=== PATIENT | female | born 1975 | race Two or more races ===

== ENCOUNTER 2021-01-20 05:39 | Inpatient (IN) | payer MEDICAID ==
[~2021-01-20] VITALS: Ht 165.1 cm; Wt 96.8 kg
[2021-01-20 06:28] LABS: Basophils # (auto) 0 10 ^3/uL (0-0.2); Basophils % (auto) 0.2 % (0.0-2.0); Eosinophils # (auto) 0 10 ^3/uL (0-0.8); Hematocrit 40.3 % (36.0-46.0); Hemoglobin 13.5 g/dL (12.2-16.2); Lymphocytes # (auto) 2.6 10 ^3/uL (0.4-5.4); Lymphocytes % (auto) 31.7 % (10.0-50.0); Mean Corpuscular Hemoglobin 27.4 pg (28.0-32.0); Mean Corpuscular Hgb Conc. 33.6 g/dL (32.0-36.0); Mean Corpuscular Volume 81.5 fL (80.0-100.0); Monocytes # (auto) 0.6 10 ^3/uL (0-1.3); Monocytes % (auto) 6.7 % (0.0-12.0); Neutrophils # (auto) 5.1 10 ^3/uL (1.6-8.6); Neutrophils % (auto) 61.4 % (37.0-80.0); Nucleated Red Blood Cells % 0.1 %; Platelet Count (auto) 276 10^3/uL (140-450); Red Blood Cells 4.94 10^6/uL (4.0-5.20); Red Cell Distribution Width 14.8 % (11.8-14.3); White Blood Cell 8.3 10^3/uL (4.4-10.8)
[2021-01-20] MEDS ORDERED: ONDANSETRON HCL 4 MG/2 ML VIAL IV ONE ×2 (06:45→08:30)
[2021-01-20] MEDS ORDERED: KETOROLAC TROMETH 30 MG/ML 1ML VIAL IV ONE (06:45)
[2021-01-20 06:50] LABS: Albumin 3.4 g/dL (3.4-5.0); Calcium 8.4 mg/dL (8.5-10.1); Potassium 3.6 mmol/L (3.5-5.1)
[2021-01-20 06:54] LABS: BUN/Creatinine Ratio 9.6; Bilirubin, Total 0.3 mg/dL (0.2-1.0); Total Protein 7.8 g/dL (6.4-8.2)
[2021-01-20] MEDS ORDERED: TAMSULOSIN HYDROCHLORIDE 0.4 MG CAP PO ONE (07:00)
[2021-01-20] MEDS ORDERED: SODIUM CHLORIDE 0.9% 1,000 ML IV ONE ×3 (07:00→10:00)
[2021-01-20] MEDS ORDERED: MORPHINE SULFATE 4 MG/ML SYR/VIAL IV ONE (08:30)
[2021-01-20 08:34] LABS: Urine Bacteria FEW /hpf (None Seen); Urine Blood 1+ /uL (Negative); Urine Specific Gravity 1.003 (1.001-1.035); Urine WBC 3 /hpf (0 - 5)
[2021-01-20] MEDS ORDERED: HYDROcodone-ACET 5/325MG TAB PO PRN (09:45)
[2021-01-20] MEDS ORDERED: ACETAMINOPHEN 500 MG TAB PO PRN (09:45)
[2021-01-20] MEDS ORDERED: SODIUM CHLORIDE 0.9% 1,000 ML IV SCH (09:45)
[2021-01-20] MEDS ORDERED: MORPHINE SULF INJ 2 MG/ML SYRINGE 1ML IV PRN (09:45)
[2021-01-20] MEDS ORDERED: ONDANSETRON HCL 4 MG/2 ML VIAL IV PRN (09:45)
[2021-01-20] MEDS ORDERED: cefTRIAXone 1GM/50ML D5W 50 ML IV ONE (10:00)
[2021-01-20] MEDS: DOCUSATE SOD 100 MG CAP PO SCH ×2 (10:00→21:40)
[2021-01-20] MEDS ORDERED: MANNITOL FTV 25% 12.5 GM/50 ML 50 ML IV ONE (10:00)
[2021-01-20] MEDS ORDERED: METOCLOPRAMIDE HCL 5MG/ml INJ 2ml VIAL IV ONE (10:00)
[2021-01-20] MEDS: FAMOTIDINE 20 MG TAB PO SCH (10:13)
[2021-01-20] MEDS: SODIUM CHLORIDE 0.9% 1,000 ML IV SCH ×2 (14:48→21:40)
[2021-01-20] MEDS: TAMSULOSIN HYDROCHLORIDE 0.4 MG CAP PO SCH (18:37)
[2021-01-20 20:40] VITALS: BP 131/77
[2021-01-20 22:00] VITALS: BP 131/77
[2021-01-21 05:00] VITALS: BP 138/77
[2021-01-21] MEDS: SODIUM CHLORIDE 0.9% 1,000 ML IV SCH (05:49)
[2021-01-21 06:11] LABS: Basophils # (auto) 0 10 ^3/uL (0-0.2); Basophils % (auto) 0.2 % (0.0-2.0); Eosinophils # (auto) 0 10 ^3/uL (0-0.8); Hematocrit 33.6 % (36.0-46.0); Hemoglobin 11.3 g/dL (12.2-16.2); Lymphocytes # (auto) 2.1 10 ^3/uL (0.4-5.4); Lymphocytes % (auto) 26.9 % (10.0-50.0); Mean Corpuscular Hemoglobin 27.5 pg (28.0-32.0); Mean Corpuscular Hgb Conc. 33.5 g/dL (32.0-36.0); Monocytes # (auto) 0.6 10 ^3/uL (0-1.3); Monocytes % (auto) 7.3 % (0.0-12.0); Neutrophils # (auto) 5.1 10 ^3/uL (1.6-8.6); Neutrophils % (auto) 65.6 % (37.0-80.0); Nucleated Red Blood Cells % 0.1 %; Platelet Count (auto) 218 10^3/uL (140-450); Red Cell Distribution Width 14.7 % (11.8-14.3); White Blood Cell 7.8 10^3/uL (4.4-10.8)
[2021-01-21 06:19] LABS: Potassium 3.6 mmol/L (3.5-5.1)
[2021-01-21 06:30] LABS: BUN/Creatinine Ratio 8.5; Calcium 7.6 mg/dL (8.5-10.1)
[2021-01-21 08:48] VITALS: BP 147/94
[2021-01-21] MEDS ORDERED: cefTRIAXone 1GM/50ML D5W 50 ML IV SCH (09:00)
[2021-01-21] MEDS: DOCUSATE SOD 100 MG CAP PO SCH (10:00)
[2021-01-21] MEDS: FAMOTIDINE 20 MG TAB PO SCH (10:39)
[2021-01-21] MEDS: TAMSULOSIN HYDROCHLORIDE 0.4 MG CAP PO SCH (10:39)
[2021-01-21 13:00] VITALS: BP 147/92
[2021-01-21 16:59] VITALS: BP 153/107
== END 2021-01-21 18:30 | disposition home or self-care (01) | DRG 463 ==
LOC: ER 05:39 → OVERFLOW 05:40 → CENTRAL 20:53
PROVIDERS: ADMIT Nurse Practitioner Acute Care; ATTEND Internal Medicine
DX: N13.6 Pyonephrosis (principal); E66.9 Obesity, unspecified; S93.402A Sprain of unspecified ligament of left ankle, initial encounter; F17.210 Nicotine dependence, cigarettes, uncomplicated; K44.9 Diaphragmatic hernia without obstruction or gangrene; X58.XXXA Exposure to other specified factors, initial encounter; Z20.822 Contact with and (suspected) exposure to COVID-19; Y93.89 Activity, other specified; Z87.442 Personal history of urinary calculi; Z90.49 Acquired absence of other specified parts of digestive tract; Y92.89 Other specified places as the place of occurrence of the external cause; Y99.8 Other external cause status; Z68.35 Body mass index [BMI] 35.0-35.9, adult; R16.0 Hepatomegaly, not elsewhere classified
CPT/HCPCS: 36415; 74176; 80048; 80053; 81001; 81025; 85025; 87086; 87426; 96361; 96365; 96367; 96375; G0378; J0696; J1885; J2405

== ENCOUNTER 2021-12-23 05:40 | Emergency (ER) | payer MEDICAID ==
[~2021-12-23] VITALS: Ht 165.1 cm; Wt 104.3 kg
[2021-12-23 05:42] VITALS: BP 166/101
== END 2021-12-23 06:55 | disposition left against medical advice (07) ==
LOC: ER 05:40
DX: L02.01 Cutaneous abscess of face (principal); F17.210 Nicotine dependence, cigarettes, uncomplicated; Z90.49 Acquired absence of other specified parts of digestive tract

== ENCOUNTER 2022-05-14 20:21 | Emergency (ER) | payer MEDICAID ==
[~2022-05-14] VITALS: Ht 165.1 cm; Wt 89.8 kg
[2022-05-14 20:21] VITALS: BP 153/89
[2022-05-14 23:25] LABS: Eosinophils # (auto) 0 10 ^3/uL (0-0.8); Lymphocytes # (auto) 3.9 10 ^3/uL (0.4-5.4); Monocytes # (auto) 0.9 10 ^3/uL (0-1.3); Red Cell Distribution Width 15.5 % (11.8-14.3)
[2022-05-14 23:26] LABS: Basophils # (auto) 0 10 ^3/uL (0-0.2); Basophils % (auto) 0.2 % (0.0-2.0); Hematocrit 39.8 % (36.0-46.0); Hemoglobin 12.9 g/dL (12.2-16.2); Lymphocytes % (auto) 31.8 % (10.0-50.0); Mean Corpuscular Hemoglobin 27.1 pg (28.0-32.0); Mean Corpuscular Hgb Conc. 32.3 g/dL (32.0-36.0); Mean Corpuscular Volume 83.8 fL (80.0-100.0); Monocytes % (auto) 7.1 % (0.0-12.0); Neutrophils # (auto) 7.4 10 ^3/uL (1.6-8.6); Neutrophils % (auto) 60.9 % (37.0-80.0); Red Blood Cells 4.75 10^6/uL (4.0-5.20); White Blood Cell 12.2 10^3/uL (4.4-10.8)
[2022-05-14 23:42] LABS: Albumin 3.7 g/dL (3.4-5.0); BUN/Creatinine Ratio 16.5; Calcium 9.1 mg/dL (8.5-10.1); Potassium 3.9 mmol/L (3.5-5.1)
[2022-05-14 23:44] LABS: Bilirubin, Total 0.2 mg/dL (0.2-1.0); Total Protein 7.9 g/dL (6.4-8.2)
[2022-05-15] MEDS ORDERED: BACL20TA PO (00:01)
[2022-05-15] MEDS ORDERED: HYDR-3682 PO (00:01)
== END 2022-05-15 00:20 | disposition home or self-care (01) ==
LOC: ER 20:32
DX: R25.3 Fasciculation (principal); F41.9 Anxiety disorder, unspecified; F43.9 Reaction to severe stress, unspecified; F17.210 Nicotine dependence, cigarettes, uncomplicated; Z90.49 Acquired absence of other specified parts of digestive tract
CPT/HCPCS: 36415; 70450; 80053; 84484; 85025

== ENCOUNTER 2022-12-28 17:10 | Emergency (ER) | payer MEDICAID ==
[~2022-12-28] VITALS: Ht 165.1 cm; Wt 98.1 kg
[~2022-12-28 17:10] MED LIST: BACL20TA PO; HYDR-3682 PO
[2022-12-28 17:26] VITALS: BP 169/90
[2022-12-28] MEDS ORDERED: methylPREDNISolone SOD SUCC 125 MG/2 ML VL IV ONE (17:45)
[2022-12-28] MEDS ORDERED: SODIUM CHLORIDE 0.9% 1,000 ML IV ONE (17:45)
[2022-12-28] MEDS ORDERED: FAMOTIDINE (10MG/ML) 2ML VL IV ONE (17:45)
[2022-12-28 18:31] LABS: Basophils # (auto) 0 10 ^3/uL (0-0.2); Eosinophils # (auto) 0 10 ^3/uL (0-0.8); Hemoglobin 12.7 g/dL (12.2-16.2); Lymphocytes # (auto) 3.5 10 ^3/uL (0.4-5.4); Lymphocytes % (auto) 30.9 % (10.0-50.0); Mean Corpuscular Hemoglobin 27.8 pg (28.0-32.0); Mean Corpuscular Hgb Conc. 33.3 g/dL (32.0-36.0); Mean Corpuscular Volume 83.3 fL (80.0-100.0); Monocytes # (auto) 0.7 10 ^3/uL (0-1.3); Neutrophils # (auto) 7.2 10 ^3/uL (1.6-8.6); Neutrophils % (auto) 63.1 % (37.0-80.0); Nucleated Red Blood Cells % 0.1 %; Red Blood Cells 4.56 10^6/uL (4.0-5.20); Red Cell Distribution Width 14.7 % (11.8-14.3); White Blood Cell 11.4 10^3/uL (4.4-10.8)
[2022-12-28 18:44] LABS: Calcium 7.6 mg/dL (8.5-10.1); Potassium 3.5 mmol/L (3.5-5.1)
[2022-12-28 19:03] LABS: BUN/Creatinine Ratio 12.8
[2022-12-28 19:04] LABS: Bilirubin, Total 0.3 mg/dL (0.2-1.0); Total Protein 6.6 g/dL (6.4-8.2)
[2022-12-28] MEDS ORDERED: METH4PAK PO (19:22)
== END 2022-12-28 19:48 | disposition home or self-care (01) ==
LOC: ER 17:10
DX: T78.40XA Allergy, unspecified, initial encounter (principal); Z90.49 Acquired absence of other specified parts of digestive tract; Z79.899 Other long term (current) drug therapy; Y92.89 Other specified places as the place of occurrence of the external cause
CPT/HCPCS: 36415; 80053; 85025; 96374; 96375; 99284; J2930; J3490; J7030

== ENCOUNTER 2023-07-25 07:35 | Emergency (ER) | payer MEDICAID ==
[~2023-07-25] VITALS: Ht 167.6 cm; Wt 88.3 kg
[~2023-07-25 07:35] MED LIST changes: +CALA1SUS2 EX; +EPIN0.3I24 IJ; +METH4PAK PO; +PRED20TA2 PO
[2023-07-25 08:05] VITALS: BP 139/88; PULSE 100; RESP 19; TEMP 97.9; O2SAT 97
[2023-07-25] MEDS ORDERED: CLINDAMYCIN 600MG IV 50 ML IV ONE (08:30)
[2023-07-25 08:54] LABS: Basophils # (auto) 0.1 10 ^3/uL (0-0.2); Basophils % (auto) 0.5 % (0.0-2.0); Eosinophils # (auto) 0 10 ^3/uL (0-0.8); Hematocrit 41.9 % (36.0-46.0); Hemoglobin 13.6 g/dL (12.2-16.2); Lymphocytes # (auto) 2.8 10 ^3/uL (0.4-5.4); Lymphocytes % (auto) 25.3 % (10.0-50.0); Mean Corpuscular Hemoglobin 27.2 pg (28.0-32.0); Mean Corpuscular Hgb Conc. 32.5 g/dL (32.0-36.0); Mean Corpuscular Volume 83.7 fL (80.0-100.0); Monocytes # (auto) 0.8 10 ^3/uL (0-1.3); Monocytes % (auto) 7.4 % (0.0-12.0); Neutrophils # (auto) 7.4 10 ^3/uL (1.6-8.6); Neutrophils % (auto) 66.8 % (37.0-80.0); Red Blood Cells 5.01 10^6/uL (4.0-5.20); Red Cell Distribution Width 14.4 % (11.8-14.3); White Blood Cell 11.1 10^3/uL (4.4-10.8)
[2023-07-25] MEDS ORDERED: cefTRIAXone 1GM/50ML D5W 50 ML IV ONE (09:15)
[2023-07-25 09:19] LABS: Alanine Aminotransferase 22 U/L (7-40); Alkaline Phosphatase 81 U/L (46-116); Anion Gap 7.8 (5-15); BUN/Creatinine Ratio 14.5 (10.0-20.0); Blood Urea Nitrogen 11 mg/dL (9-23); Calcium 9.2 mg/dL (8.5-10.1); Carbon Dioxide 24.2 mmol/L (20-30); Chloride 106 mmol/L (98-107); Glucose 104 mg/dL (74-106); Potassium 3.7 mmol/L (3.5-5.1); Sodium 138 mmol/L (136-145)
[2023-07-25 09:20] LABS: Albumin 4.7 g/dL (3.2-4.8); Aspartate Aminotransferase 18 U/L (13-40)
[2023-07-25] MEDS ORDERED: CLIN300C70 PO (09:41)
[2023-07-25] MEDS ORDERED: IBUP-1455 PO (09:41)
== END 2023-07-25 09:42 | disposition home or self-care (01) ==
LOC: ER 07:35
DX: S30.861A Insect bite (nonvenomous) of abdominal wall, initial encounter (principal); L03.311 Cellulitis of abdominal wall; Z79.899 Other long term (current) drug therapy; W57.XXXA Bitten or stung by nonvenomous insect and other nonvenomous arthropods, initial encounter; Y93.89 Activity, other specified; Y92.89 Other specified places as the place of occurrence of the external cause; Y99.8 Other external cause status
CPT/HCPCS: 36415; 80053; 85025; 87077; 87186; 87205; 96365; 96367; 99284; J0696; J3490

== ENCOUNTER 2023-07-27 18:13 | Emergency (ER) | payer MEDICAID ==
[~2023-07-27] VITALS: Ht 165.1 cm; Wt 98.8 kg
[~2023-07-27 18:13] MED LIST changes: +CLIN300C70 PO; +IBUP-1455 PO
[2023-07-27 19:03] VITALS: BP 162/102; PULSE 99; RESP 16; O2SAT 96
== END 2023-07-27 23:32 | disposition home or self-care (01) ==
LOC: ER 18:13
DX: L03.311 Cellulitis of abdominal wall (principal)

== ENCOUNTER 2023-11-04 09:39 | Emergency (ER) | payer MEDICAID ==
[~2023-11-04] VITALS: Ht 165.1 cm; Wt 91.3 kg
[2023-11-04 10:02] VITALS: BP 144/97; PULSE 122; RESP 18; TEMP 98.6; O2SAT 96
[2023-11-04] MEDS ORDERED: methylPREDNISolone SOD SUCC 125 MG/2 ML VL IM ONE (10:30)
[2023-11-04] MEDS ORDERED: EPINEPHrine HCL 1 MG/1 ML AMP SC ONE (10:30)
[2023-11-04] MEDS ORDERED: methylPREDNISolone SOD SUCC 125 MG/2 ML VL ONE (10:35)
[2023-11-04] MEDS ORDERED: EPINEPHrine HCL 1 MG/1 ML AMP ONE (10:35)
[2023-11-04] MEDS ORDERED: HYDR50CA PO (10:51)
[2023-11-04] MEDS ORDERED: PRED20TA2 PO (10:51)
== END 2023-11-04 11:10 | disposition home or self-care (01) ==
LOC: ER 09:39
DX: T78.40XA Allergy, unspecified, initial encounter (principal); X58.XXXA Exposure to other specified factors, initial encounter
CPT/HCPCS: 96372; 99284; J0171; J2930

== ENCOUNTER 2023-11-06 03:01 | Emergency (ER) | payer MEDICAID ==
[~2023-11-06] VITALS: Ht 165.1 cm; Wt 92.8 kg
[~2023-11-06 03:01] MED LIST changes: +HYDR50CA PO
[2023-11-06 03:37] VITALS: BP 146/102; PULSE 124; RESP 20; TEMP 98.2; O2SAT 95
[2023-11-06] MEDS ORDERED: FAMOTIDINE 20 MG TAB PO ONE (04:15)
[2023-11-06] MEDS ORDERED: methylPREDNISolone SOD SUCC 125 MG/2 ML VL IM ONE (04:15)
[2023-11-06] MEDS ORDERED: diphenhdrAMINE HCL 50 MG/1 ML VL IM ONE (04:15)
[2023-11-06] MEDS ORDERED: FAMO20TA10 PO (04:42)
== END 2023-11-06 06:04 | disposition home or self-care (01) ==
LOC: ER 03:01
DX: L50.0 Allergic urticaria (principal)
CPT/HCPCS: 96372; 99284; J1200; J2930

== ENCOUNTER 2024-02-27 07:07 | Emergency (ER) | payer MEDICAID ==
[~2024-02-27 07:07] MED LIST changes: +CLIN1CAP70 PO; -CLIN300C70 PO; +FAMO20TA10 PO
== END 2024-02-27 07:53 | disposition left against medical advice (07) ==
LOC: ER 07:07
DX: T78.40XA Allergy, unspecified, initial encounter (principal); Z53.21 Procedure and treatment not carried out due to patient leaving prior to being seen by health care provider; X58.XXXA Exposure to other specified factors, initial encounter

== ENCOUNTER 2024-04-22 12:48 | Emergency (ER) | payer MEDICAID ==
[~2024-04-22] VITALS: Ht 160 cm; Wt 93.5 kg
[2024-04-22] MEDS: DexAMETHasone SOD PHOS 10MG/1ML VIAL INJ IV ONE (13:18)
[2024-04-22] MEDS: FAMOTIDINE (10MG/ML) 2ML VL IV ONE (13:18)
[2024-04-22] MEDS: diphenhdrAMINE HCL 50 MG/1 ML VL IV ONE (13:18)
[2024-04-22] MEDS: ALBUTEROL SULF 2.5 MG/0.5ML(0.5%) NEB SOLN NEB ONE (13:25)
[2024-04-22] MEDS: SODIUM CHLORIDE 0.9% 1,000 ML IV ONE (13:25)
[2024-04-22] MEDS: METOCLOPRAMIDE HCL 5MG/ml INJ 2ml VIAL IV ONE (13:25)
[2024-04-22] MEDS: BUDESONIDE (INHALATION) 0.5 MG/2 ML NEB NEB ONE (13:26)
[2024-04-22 14:12] LABS: Basophils # (auto) 0 10 ^3/uL (0-0.2); Basophils % (auto) 0.2 % (0.0-2.0); Eosinophils # (auto) 0 10 ^3/uL (0-0.8); Hematocrit 41.1 % (36.0-46.0); Hemoglobin 13.2 g/dL (12.2-16.2); Lymphocytes # (auto) 6.6 10 ^3/uL (0.4-5.4); Lymphocytes % (auto) 31.5 % (10.0-50.0); Mean Corpuscular Hemoglobin 27.3 pg (28.0-32.0); Mean Corpuscular Hgb Conc. 32.1 g/dL (32.0-36.0); Monocytes # (auto) 1.4 10 ^3/uL (0-1.3); Monocytes % (auto) 6.5 % (0.0-12.0); Neutrophils % (auto) 61.8 % (37.0-80.0); Nucleated Red Blood Cells % 0.2 %; Red Blood Cells 4.84 10^6/uL (4.0-5.20); Red Cell Distribution Width 15.4 % (11.8-14.3); White Blood Cell 21.1 10^3/uL (4.4-10.8)
[2024-04-22 14:23] VITALS: BP 160/72; PULSE 113; RESP 26; O2SAT 99
[2024-04-22 14:23] LABS: Alanine Aminotransferase 22 U/L (7-40); Albumin 4.5 g/dL (3.2-4.8); Alkaline Phosphatase 77 U/L (46-116); Anion Gap 11 (5-15); Aspartate Aminotransferase 21 U/L (13-40); BUN/Creatinine Ratio 22.1 (10.0-20.0); Bilirubin, Total 1.1 mg/dL (0.2-1.0); Blood Urea Nitrogen 19 mg/dL (9-23); Calcium 9.4 mg/dL (8.5-10.1); Carbon Dioxide 20 mmol/L (20-30); Chloride 109 mmol/L (98-107); Glucose 192 mg/dL (74-106); Potassium 3.5 mmol/L (3.5-5.1); Sodium 140 mmol/L (136-145); Total Protein 7.1 g/dL (5.7-8.2)
== END 2024-04-22 18:22 | disposition left against medical advice (07) ==
LOC: ER 12:48
DX: T78.3XXA Angioneurotic edema, initial encounter (principal); R10.2 Pelvic and perineal pain; Z79.899 Other long term (current) drug therapy; Y92.89 Other specified places as the place of occurrence of the external cause
CPT/HCPCS: 36415; 80053; 84484; 84702; 85025; 94640; 96361; 96374; 96375; 99284; J1100; J1200; J2765; J3490; J7030

== ENCOUNTER 2024-07-28 12:13 | Emergency (ER) | payer MEDICAID ==
[~2024-07-28] VITALS: Ht 165.1 cm; Wt 90.0 kg
[2024-07-28 13:19] LABS: Urine Bacteria None Seen /hpf (None Seen)
[2024-07-28 13:37] LABS: Urine Blood 1+ /uL (Negative); Urine Clarity Clear (Clear); Urine Color Light-Yellow (Yellow); Urine Mucus FEW (None Seen); Urine Protein, UAD Negative (Negative); Urine Specific Gravity 1.025 (1.001-1.035); Urine Urobilinogen Normal (Negative); Urine WBC 3 /hpf (0 - 5); Urine pH 5.5 (5.0-9.0)
[2024-07-28] MEDS: SODIUM CHLORIDE 0.9% 1,000 ML IV ONE (13:42)
[2024-07-28 13:54] LABS: Basophils # (auto) 0 10 ^3/uL (0-0.2); Basophils % (auto) 0.1 % (0.0-2.0); Eosinophils # (auto) 0 10 ^3/uL (0-0.8); Hematocrit 39.4 % (36.0-46.0); Hemoglobin 13.3 g/dL (12.2-16.2); Lymphocytes # (auto) 1.3 10 ^3/uL (0.4-5.4); Lymphocytes % (auto) 10.8 % (10.0-50.0); Mean Corpuscular Hgb Conc. 33.8 g/dL (32.0-36.0); Mean Corpuscular Volume 82.7 fL (80.0-100.0); Monocytes # (auto) 0.7 10 ^3/uL (0-1.3); Monocytes % (auto) 5.7 % (0.0-12.0); Neutrophils # (auto) 10.3 10 ^3/uL (1.6-8.6); Neutrophils % (auto) 83.4 % (37.0-80.0); Platelet Count (auto) 278 10^3/uL (140-450); Red Blood Cells 4.77 10^6/uL (4.0-5.20); Red Cell Distribution Width 14.6 % (11.8-14.3); White Blood Cell 12.3 10^3/uL (4.4-10.8)
[2024-07-28 14:14] LABS: Alanine Aminotransferase 17 U/L (7-40); Albumin 4.2 g/dL (3.2-4.8); Alkaline Phosphatase 79 U/L (46-116); Anion Gap 4 (5-15); Aspartate Aminotransferase 12 U/L (13-40); BUN/Creatinine Ratio 17.1 (10.0-20.0); Blood Urea Nitrogen 12 mg/dL (9-23); Calcium 8.8 mg/dL (8.7-10.4); Carbon Dioxide 25 mmol/L (20-30); Chloride 108 mmol/L (98-107); Glucose 106 mg/dL (74-106); Lipase 32 U/L (12-53); Magnesium 1.6 mg/dL (1.6-2.6); Potassium 4.4 mmol/L (3.5-5.1); Sodium 137 mmol/L (136-145)
[2024-07-28 14:15] LABS: Bilirubin, Total 0.6 mg/dL (0.2-1.0); Total Protein 6.7 g/dL (5.7-8.2)
[2024-07-28] MEDS: cefTRIAXone 1GM/50ML D5W 50 ML IV ONE (15:40)
[2024-07-28 15:43] LABS: Amphetamine Screen, Urine Pos (NEGATIVE); Barbiturate Scree,Urine Neg (NEGATIVE); Benzodiazephine Screen, Urine Neg (NEGATIVE); Cannabinoid Screen, Urine Neg (NEGATIVE); Cocaine Screen, Urine Neg (NEGATIVE); Opiate Scree,Urine Neg (NEGATIVE); Phencyclidine Screen, Urine Neg (NEGATIVE)
[2024-07-28] MEDS ORDERED: CIPR-173 PO (16:04)
[2024-07-28 16:42] VITALS: BP 142/87; PULSE 93; RESP 17; TEMP 98.3; O2SAT 98
== END 2024-07-28 16:44 | disposition home or self-care (01) ==
LOC: ER 12:13
DX: N39.0 Urinary tract infection, site not specified (principal); R10.2 Pelvic and perineal pain; F15.10 Other stimulant abuse, uncomplicated; R19.7 Diarrhea, unspecified; R93.89 Abnormal findings on diagnostic imaging of other specified body structures; Z90.49 Acquired absence of other specified parts of digestive tract; Z98.51 Tubal ligation status; Z87.442 Personal history of urinary calculi; Z79.899 Other long term (current) drug therapy
CPT/HCPCS: 36415; 71045; 74176; 80053; 80307; 81001; 83605; 83690; 83735; 84484; 84702; 85025; 96361; 96365; 99285; J0696; J7030

== ENCOUNTER 2024-09-16 19:51 | Inpatient (IN) | payer MEDICAID, SELFPAY ==
[~2024-09-16] VITALS: Ht 162.6 cm; Wt 95.8 kg
[~2024-09-16 19:51] MED LIST changes: +CIPR-173 PO
[2024-09-16 20:59] LABS: Chloride 109 mmol/L (98-107); Potassium 4.1 mmol/L (3.5-5.1); Sodium 142 mmol/L (136-145)
[2024-09-16 21:00] LABS: Anion Gap 6 (5-15); Carbon Dioxide 27 mmol/L (20-31)
[2024-09-16 21:03] LABS: Basophils # (auto) 0 10 ^3/uL (0-0.2); Basophils % (auto) 0.2 % (0.0-2.0); Eosinophils # (auto) 0 10 ^3/uL (0-0.8); Hematocrit 39.5 % (36.0-46.0); Hemoglobin 13.2 g/dL (12.2-16.2); Lymphocytes # (auto) 2.7 10 ^3/uL (0.4-5.4); Lymphocytes % (auto) 30.6 % (10.0-50.0); Mean Corpuscular Hemoglobin 27.4 pg (28.0-32.0); Mean Corpuscular Hgb Conc. 33.4 g/dL (32.0-36.0); Monocytes # (auto) 0.5 10 ^3/uL (0-1.3); Neutrophils # (auto) 5.7 10 ^3/uL (1.6-8.6); Neutrophils % (auto) 63.2 % (37.0-80.0); Platelet Count (auto) 283 10^3/uL (140-450); Red Blood Cells 4.82 10^6/uL (4.0-5.20)
[2024-09-16 21:05] LABS: BUN/Creatinine Ratio 15.7 (10.0-20.0); Blood Urea Nitrogen 11 mg/dL (9-23); Glucose 105 mg/dL (74-106)
[2024-09-16 21:33] LABS: Urine Bacteria FEW /hpf (None Seen); Urine Blood TRACE /uL (Negative); Urine Clarity Clear (Clear); Urine Color Light-Yellow (Yellow); Urine Mucus FEW (None Seen); Urine Protein, UAD TRACE (Negative); Urine Specific Gravity 1.027 (1.001-1.035); Urine Urobilinogen Normal (Negative); Urine WBC 19 /hpf (0 - 5); Urine pH 6.5 (5.0-9.0)
[2024-09-16 22:36] VITALS: PULSE 78; RESP 19; O2SAT 99
[2024-09-16] MEDS ORDERED: DOCUSATE SOD 100 MG CAP PO PRN (22:45)
[2024-09-16] MEDS ORDERED: MORPHINE SULFATE INJ 2 MG/ml SYRG IV PRN (22:45)
[2024-09-16] MEDS ORDERED: ACETAMINOPHEN 325 MG TAB PO PRN (22:45)
[2024-09-16] MEDS ORDERED: NITROGLYCERIN 0.4 MG SL TAB SL PRN (22:45)
[2024-09-16] MEDS ORDERED: ONDANSETRON HCL 4 MG/2 ML VIAL IV PRN (22:45)
[2024-09-16] MEDS ORDERED: HYDROcodone-ACET 5/325MG TAB PO PRN (22:45)
[2024-09-16] MEDS: cefTRIAXone 1GM/50ML D5W 50 ML IV ONE (22:55)
[2024-09-17] MEDS: methylPREDNISolone SOD SUCC 40 MG/ML VL IV ONE (00:21)
[2024-09-17] MEDS: hydrOXYzine 25 MG TAB or CAP PO PRN (00:53)
[2024-09-17 01:05] VITALS: BP 132/76; PULSE 77; RESP 18; TEMP 97.9; O2SAT 99
[2024-09-17] MEDS ORDERED: CETI10TA2 PO (01:35)
[2024-09-17] MEDS ORDERED: [UNRECOGNIZED DRUG - CODE] SC (01:35)
[2024-09-17] MEDS ORDERED: LOSA-534 PO (01:35)
[2024-09-17 05:00] VITALS: BP 104/53; PULSE 87; RESP 18; TEMP 98; O2SAT 95
[2024-09-17] MEDS: SODIUM CHLOR 0.9% PF (SALINE LOCK) 10ML VIAL/SYR IV SCH (05:26)
[2024-09-17] MEDS: methylPREDNISolone SOD SUCC 40 MG/ML VL IV SCH (05:26)
[2024-09-17 06:22] LABS: Basophils # (auto) 0 10 ^3/uL (0-0.2); Eosinophils # (auto) 0 10 ^3/uL (0-0.8); Hematocrit 38.5 % (36.0-46.0); Hemoglobin 12.8 g/dL (12.2-16.2); Lymphocytes # (auto) 0.9 10 ^3/uL (0.4-5.4); Lymphocytes % (auto) 10.4 % (10.0-50.0); Mean Corpuscular Hemoglobin 27.2 pg (28.0-32.0); Mean Corpuscular Hgb Conc. 33.3 g/dL (32.0-36.0); Mean Corpuscular Volume 81.8 fL (80.0-100.0); Monocytes # (auto) 0.1 10 ^3/uL (0-1.3); Monocytes % (auto) 1.3 % (0.0-12.0); Neutrophils # (auto) 7.8 10 ^3/uL (1.6-8.6); Neutrophils % (auto) 88.3 % (37.0-80.0); Platelet Count (auto) 263 10^3/uL (140-450); Red Blood Cells 4.71 10^6/uL (4.0-5.20); White Blood Cell 8.8 10^3/uL (4.4-10.8)
[2024-09-17 06:50] LABS: Alanine Aminotransferase 22 U/L (7-40); Alkaline Phosphatase 74 U/L (46-116); Chloride 107 mmol/L (98-107); Potassium 4.2 mmol/L (3.5-5.1); Sodium 139 mmol/L (136-145)
[2024-09-17 06:59] LABS: Carbon Dioxide 23 mmol/L (20-31)
[2024-09-17 07:00] LABS: Calcium 9.5 mg/dL (8.7-10.4)
[2024-09-17 07:05] LABS: BUN/Creatinine Ratio 17.2 (10.0-20.0); Blood Urea Nitrogen 11 mg/dL (9-23); Glucose 180 mg/dL (74-106)
[2024-09-17 07:06] LABS: Aspartate Aminotransferase 20 U/L (13-40)
[2024-09-17 07:07] LABS: Albumin 4.1 g/dL (3.2-4.8)
[2024-09-17 07:11] LABS: Anion Gap 8 (5-15); Bilirubin, Total 0.4 mg/dL (0.2-1.0)
[2024-09-17 08:42] VITALS: BP 122/75; PULSE 91; RESP 20; TEMP 98.2; O2SAT 96
[2024-09-17] MEDS: cefTRIAXone 1GM/50ML D5W 50 ML IV SCH (09:01)
[2024-09-17] MEDS: FAMOTIDINE (10MG/ML) 2ML VL IV SCH (09:01)
[2024-09-17 13:00] VITALS: BP 138/70; PULSE 103; RESP 20; TEMP 97.9; O2SAT 95
[2024-09-17 17:00] VITALS: BP 135/70; PULSE 106; RESP 20; TEMP 98.3; O2SAT 98
[2024-09-18] MEDS ORDERED: LORATADINE 10 MG TAB PO SCH (10:00)
== END 2024-09-17 19:15 | disposition left against medical advice (07) | DRG 607 ==
LOC: ER 19:51 → TELE 22:37 → TELE-CENTR 09-17 01:56
PROVIDERS: ADMIT Nurse Practitioner Family; ATTEND Nurse Practitioner Family
DX: L53.8 Other specified erythematous conditions (principal); N39.0 Urinary tract infection, site not specified; L50.8 Other urticaria; J98.4 Other disorders of lung; I10 Essential (primary) hypertension; Z53.29 Procedure and treatment not carried out because of patient's decision for other reasons; Z87.442 Personal history of urinary calculi; Z90.49 Acquired absence of other specified parts of digestive tract
CPT/HCPCS: 36415; 71045; 80048; 80053; 81001; 85025; 85379; 87086; 96365; 96375; G0378; J3490